=== PATIENT | female | born 1975 | race Caucasian/White ===

== ENCOUNTER → 2017-08-17 | Outpatient (REF) | payer OTHER ==
[2017-08-17 16:48] LABS: THYROID PEROXIDASE ANTIBODY < 28.0 U/ML (<60.0)
[2017-08-17 16:50] LABS: ALBUMIN 3.9 GM/DL (3.2-5.2); ALBUMIN/GLOBULIN RATIO 1.15 (1.00-1.93); ALKALINE PHOSPHATASE 58 U/L (45-117); ALT/SGPT 30 U/L (12-78); AST/SGOT 15 U/L (7-37); BILIRUBIN,DIRECT < 0.1 MG/DL (0.0-0.2); BILIRUBIN,TOTAL 0.2 MG/DL (0.2-1.0); FREE T3 2.5 PG/ML (2.2-4.0); FREE T4 0.96 NG/DL (0.76-1.46); RHEUMATOID FACTOR QUANT < 10.0 IU/ML (<15.0); THYROID STIMULATING HORMONE 0.956 uIU/ML (0.358-3.740); TOTAL PROTEIN 7.3 GM/DL (6.4-8.2)
[2017-08-17 17:14] LABS: ERYTHROCYTE SEDIMENTATION RATE 15 mm/hr (0-20)
[2017-08-23 00:10] LABS: ANTINUCLEAR ANTIBODIES DIRECT Negative (Negative); IGE RECEPTOR ABY 1 <2.2 (<10); THRYOGLOBULIN ANTIBODIES (ATA) < 1.0 IU/mL (0.0-0.9); THYROGLOBULIN QUANTITATIVE 5.4 ng/mL (1.5-38.5)
== END ==
LOC: M LABDRAW1 16:03
DX: L50.1 Idiopathic urticaria (principal)

== ENCOUNTER → 2018-05-26 | Outpatient (REF) | payer OTHER ==
[~2018-05-26] MED LIST: NORCOTAB PO; ZOFR4TAB16 PO
== END ==
LOC: M LAB REF 19:07
PROVIDERS: ATTEND Physician Assistant Medical
DX: M54.5 Low back pain (principal)

== ENCOUNTER 2018-05-30 18:12 | Emergency (ER) | payer OTHER ==
[~2018-05-30] VITALS: Ht 162.6 cm; Wt 95.5 kg
[2018-05-30] MEDS ORDERED: NORCO, ANEXSIA 5/325MG TABLET (HYDROcodone/ACETAMINOPHEN) PO ONE (19:00)
--- NOTE | 2018-05-30 20:02 | REP ---
CHEST, TWO VIEWS: COMPARISON: 11/28/2006 There is no acute infiltrate. The heart is normal in size. Mediastinal silhouette is unremarkable and unchanged. The visualized osseous structures are grossly intact. IMPRESSION: No acute pulmonary disease. Electronically Signed by Dieter Kerr MD 05/31/2018 02:12 P
[2018-05-30] MEDS ORDERED: NORCOTAB PO (20:59)
[2018-05-30] MEDS ORDERED: ZOFR4TAB16 PO (21:01)
--- NOTE | 2018-05-30 21:01 | REP ---
CT ABDOMEN AND PELVIS WITHOUT CONTRAST: CT abdomen and pelvis performed without oral or IV contrast. Sagittal and coronal reconstruction images are performed. The visualized lung bases demonstrate no infiltrate. The liver is grossly unremarkable. Patient has had a cholecystectomy previously. There is no biliary dilatation. The spleen, adrenals, pancreas and left kidney are unremarkable. Right kidney demonstrates a 2 mm calcification in the mid collecting system. No ureteral or bladder calculus is seen and there is no evidence of hydroureteronephrosis. There is no abdominal aortic aneurysm. There is no adenopathy. There is no free air or free fluid. There is no bowel wall thickening. There is no evidence of appendicitis. I see no pelvic mass. The urinary bladder is not optimally distended. IMPRESSION: There is a tiny 2 mm intrarenal calculus right kidney. No hydroureteronephrosis. Patient has had a prior cholecystectomy. No evidence of appendicitis. Electronically Signed by Dieter Kerr MD 05/31/2018 02:41 P
[2018-05-30 21:13] VITALS: BP 140/77
== END 2018-05-30 21:13 | disposition home or self-care (01) ==
LOC: M ED 18:12
DX: N83.209 Unspecified ovarian cyst, unspecified side (principal); N20.0 Calculus of kidney; Z88.2 Allergy status to sulfonamides; J30.2 Other seasonal allergic rhinitis

== ENCOUNTER → 2018-10-25 | Outpatient (CLI) | payer OTHER ==
[~2018-10-25] MED LIST changes: +HYDR-3715 PO; -NORCOTAB PO
--- NOTE | 2018-10-25 20:19 | REP ---
Diagnostic unilateral left breast mammography with CAD and 3-D tomography as well as focused left breast sonography: History: Pain and lump in the left axilla. Remote prior lipoma excision here. Comparison is made with multiple prior mammographic studies, the most recent of these is from October 25, 2018. More remote prior [facility] imaging mammography is reviewed as well. Mammographic findings: Magnified CC and true mediolateral views were obtained along with MLO views. A skin marker is affixed to the skin at the site of the symptoms and palpable abnormality. Mammographic views demonstrate a normal stable fat replaced lymph node adjacent to the skin marker and normal vascular structures. No mass is seen. Breast parenchyma is predominately fat replaced. No change mammographically from multiple prior mammograms. No microcalcification or worrisome skin change is seen. Sonographic findings: The left axilla is scanned. There is an 8 mm x 10 mm x 4 mm lymph node in the left axilla with hyperechoic fatty hilar architecture. There is also a somewhat larger lymph node measuring 2.6 x 1.2 x 2.7 cm. It also has a normal appearing echogenic fatty hilum and is felt to correspond with the larger node seen mammographically. No sonographically suspicious findings. Impression: BIRADS category II benign findings. Clinical follow-up is advised. BIRADS 2: BI-RADS/ACR category 2 mammogram. Benign Findings. This mammogram was interpreted with the aid of an FDA-approved computer-aided detection system. The patient states she had a clinical breast exam in October 2018. The patient letter being requested is m# [id number]. Electronically Signed by Abiodun Montilla MD 10/25/2018 09:18 P
== END ==
LOC: M RAD 13:36
PROVIDERS: ATTEND Surgery
DX: N63.32 Unspecified lump in axillary tail of the left breast (principal)

== ENCOUNTER → 2018-11-15 | Outpatient (REF) | payer OTHER | LOC: M LAB REF 19:35 | PROVIDERS: ATTEND Physician Assistant Medical | DX: J02.9 Acute pharyngitis, unspecified (principal) ==

== ENCOUNTER → 2020-07-18 | Outpatient (CLI) | payer OTHER ==
[~2020-07-18] MED LIST changes: +BIOT10009 PO; +VITAD400CA PO; +VITMTA PO
== END ==
LOC: M LABSMTC 10:18
PROVIDERS: ATTEND Anesthesiology
DX: Z01.812 Encounter for preprocedural laboratory examination (principal); Z11.52 Encounter for screening for COVID-19

== ENCOUNTER 2020-07-23 07:16 | Day surgery (SDC) | payer OTHER ==
[~2020-07-23] VITALS: Ht 162.6 cm; Wt 101.1 kg
[~2020-07-23 07:16] MED LIST changes: +LR 1,000 ML IV ONE
[2020-07-23 08:14] LABS: HEMATOCRIT 43.3 % (36.0-47.0); HEMOGLOBIN 14.7 g/dl (12.0-15.5); MEAN CORPUSCULAR HEMOGLOBIN 30.2 pg (27.0-33.0); MEAN CORPUSCULAR HGB CONC 33.9 g/dl (32.0-36.5); MEAN CORPUSCULAR VOLUME 89.1 fl (80.0-96.0); PLATELET COUNT, AUTOMATED 269 10^3/uL (150-450); RED BLOOD COUNT 4.86 10^6/uL (4.00-5.40); WHITE BLOOD COUNT 5.7 10^3/uL (4.0-10.0)
[2020-07-23] MEDS ORDERED: fentaNYL 250 MCG/5 ML INJECTION (J3010) As Ordered ONE (09:35)
[2020-07-23] MEDS ORDERED: MIDAZOLAM INJ 2MG/2ML VIAL (J2250 PER 1MG) As Ordered ONE (09:36)
[2020-07-23] MEDS ORDERED: propofoL 200 MG/20 ML VIAL As Ordered ONE (10:03)
[2020-07-23] MEDS ORDERED: dexameTHASONE 4 MG/ML 1ML VIAL (J1100 PER 1MG) As Ordered ONE (10:04)
[2020-07-23] MEDS ORDERED: LIDOCAINE 2% 100MG/5ML SDV (FOR ANES.) As Ordered ONE (10:06)
[2020-07-23] MEDS ORDERED: ONDANSETRON 4MG/2ML VIAL As Ordered ONE ×2 (10:28→11:25)
[2020-07-23] MEDS ORDERED: KETOROLAC 60MG 2ML VIAL As Ordered ONE (10:29)
[2020-07-23] MEDS ORDERED: LR 1,000 ML IV SCH ×2 (11:25→11:30)
[2020-07-23] MEDS ORDERED: ONDANSETRON 4MG/2ML VIAL IV PRN (11:25)
[2020-07-23] MEDS ORDERED: METOCLOPRAMIDE INJ 10MG/2ML VIAL (J2765 PER 1) IV PRN (11:25)
[2020-07-23] MEDS ORDERED: PERCOCET 5MG/325MG TAB PO PRN ×2 (11:25→11:30)
[2020-07-23] MEDS ORDERED: METOCLOPRAMIDE INJ 10MG/2ML VIAL (J2765 PER 1) As Ordered ONE (11:25)
[2020-07-23] MEDS ORDERED: fentaNYL 100 MCG/2 ML INJECTION (J3010) IV PRN (11:25)
--- NOTE | 2020-07-23 12:51 | RO ---
OPERATIVE NOTE DATE OF OPERATION: 07/23/2020 INDICATIONS: Luz Marina is a 45-year-old female with history of heavy menstrual cycles. After counseling the decision was made for D&C, hysteroscopy and NovaSure ablation. PREOPERATIVE DIAGNOSIS: Menorrhagia. POSTOPERATIVE DIAGNOSIS: Menorrhagia. PROCEDURES: 1. D&C. 2. Hysteroscopy. 3. NovaSure ablation. SURGEON: Gilson Junior DO MORNING BABYSITTER: ANESTHESIA: General. COMPLICATIONS: None. ESTIMATED BLOOD LOSS: Less than 20 mL. FINDINGS: Fluffy endometrium, cannot rule out endometrial hyperplasia. The endometrial ablation cycle lasted 1 minute 12 seconds. DESCRIPTION OF PROCEDURE: After obtaining informed consent, the patient was taken to the operating room where general anesthetic was found to be adequate. She was prepped and draped in usual sterile fashion in dorsal lithotomy position. At this point a straight catheterization of the bladder was performed of approximately 150 mL of clear urine. We then placed a weighted speculum in the posterior fornix of the vagina. Using Lujan retractor the anterior lip of the cervix was grasped with single tooth tenaculum. The uterus was sounded to approximately 10 cm giving total cavity length of 6.5. The cervix was then serially dilated. Hysteroscope was inserted. Fluffy endometrium was noted, no evidence of any polyp or fibroid. The hysteroscope was removed, sharp curettage of the endometrial lining was done and tissues sent to pathology for final diagnosis. The NovaSure endometrial ablation device was then inserted, cavity length 6.5, cavity width adjusted to 4.5. We then performed cavity test. After passing the cavity test the device was enabled and the endometrial ablation cycle was started. The cycle lasted 1 minute 12 seconds, good ablative process was noted. Good hemostasis was noted. All instruments were removed. The patient tolerated the procedure well and was then transferred to the recovery room in stable condition. cc: [facility]
[2020-07-23 13:28] VITALS: BP 131/81
[2020-07-23] MEDS ORDERED: IBUPROFEN 800 MG TAB PO SCH (18:00)
== END 2020-07-23 13:30 | disposition home or self-care (01) ==
LOC: M SDC 07:16
PROVIDERS: ATTEND Obstetrics & Gynecology
DX: N84.0 Polyp of corpus uteri (principal); Z88.2 Allergy status to sulfonamides
CPT/HCPCS: 36415; 58563; 81025; 85027; 86850; 86900; 86901; 88305; J1100; J1885; J2250; J2405; J2765; J3010

== ENCOUNTER → 2020-12-03 | Outpatient (REF) | payer OTHER ==
[~2020-12-03] MED LIST changes: -LR 1,000 ML IV ONE
[2020-12-03 15:02] LABS: ALBUMIN 3.6 GM/DL (3.2-5.2); ALT/SGPT 35 U/L (12-78); BILIRUBIN,TOTAL 0.8 MG/DL (0.2-1.0); BLOOD UREA NITROGEN 10 MG/DL (7-18); CALCIUM LEVEL 8.8 MG/DL (8.5-10.1); CARBON DIOXIDE LEVEL 29 MEQ/L (21-32); CHLORIDE LEVEL 104 MEQ/L (98-107); CHOLESTEROL LEVEL 158 MG/DL (<200); CHOLESTEROL RISK RATIO 4.647 (<5); CREATININE FOR GFR 0.61 MG/DL (0.55-1.30); GLOMERULAR FILTRATION RATE > 60.0 (>58); GLUCOSE, FASTING 116 MG/DL (70-100); HDL CHOLESTEROL 34 MG/DL (>40); LDL CHOLESTEROL 82 MG/DL (<100); NON-HDL-C 124 MG/DL; POTASSIUM SERUM 4.1 MEQ/L (3.5-5.1); SODIUM LEVEL 139 MEQ/L (136-145); TOTAL PROTEIN 6.8 GM/DL (6.4-8.2); TRIGLYCERIDES LEVEL 210 MG/DL (<150)
== END ==
LOC: M LABDRWAD 12:18
PROVIDERS: ATTEND Nurse Practitioner Family
DX: Z00.00 Encounter for general adult medical examination without abnormal findings (principal)

== ENCOUNTER → 2021-01-09 | Outpatient (CLI) | payer OTHER ==
--- NOTE | 2021-01-09 16:03 | REP ---
INDICATION: RT FLANK PAIN. COMPARISON: Multiple the latest 05/30/2018 also without contrast TECHNIQUE: Standard helical technique without intravenous or oral bowel preparatory contrast. Stone protocol utilized due right flank pain. FINDINGS: In the inferior most imaged portion of the right middle lobe there is a pleural based 5 mm size nodule. This area was not imaged on either of the prior to CT exams. The lung loyd are otherwise clear. There is a 2 mm size nonobstructing right nephrolith. This is unchanged from the prior exam of 05/30/2018. There are no left nephroliths. There are no ureteroliths. There is no hydronephrosis or hydroureter. Limited evaluation of the solid intra-abdominal organs show no significant changes from the prior exams. Limited evaluation of the pancreas and adrenal glands show no significant changes from the prior exams. There is no free fluid or free air. There is no mass or adenopathy. The bowel loops and the mesenteries are within normal limits. Round low-density structures are seen in each adnexal space likely dominant ovarian follicles Bone window technique throughout the examination shows the osseous structures to be stable and intact. IMPRESSION: 1. There is a small stable right nephrolith as described above. 2. There is no evidence of acute intra-abdominal or intrapelvic disease. Likely bilateral dominant ovarian follicles. If clinically relevant follow-up with pelvic ultrasound. 3. There is a small nodule in the right middle lobe as described above. Since are no priors for comparison, and according to the revised Fleischner society criteria, CT examination the chest is recommended. <Electronically signed by Kieran Castro > 01/09/21 [id number]
== END ==
LOC: M PLAIMG 13:27
PROVIDERS: ATTEND Nurse Practitioner Family
DX: R10.9 Unspecified abdominal pain (principal); R91.1 Solitary pulmonary nodule; N20.0 Calculus of kidney

== ENCOUNTER → 2021-01-21 | Outpatient (CLI) | payer OTHER ==
[~2021-01-21] MED LIST changes: +ISOVUE-370 76% 100ML VIAL ONE
--- NOTE | 2021-01-21 10:54 | REP ---
INDICATION: LUNG NODULE. COMPARISON: CXR 05/30/2018; lung windows from CT abdomen 01/09/2021, 05/30/2018. TECHNIQUE: Bolus 100 mL Isovue 370 scanning through the chest with coronal and sagittal reconstructions. FINDINGS: When the medial segment of the right middle lobe inferiorly and medially is compared to the prior lung windows from abdominal CT, epicardial fat pad is seen mildly prominent and with irregular margins to the long but no parenchymal lung mass is seen finding on previous CT appears to be stable pleural margin and not true lung nodule. Is also fairly prominent epicardial fat pad on the left the remainder of the right middle lobe, a both upper and lower lobes are without nodules, pleural thickening, calcified plaques, acute infiltrate or masses the heart is not enlarged and there is no pericardial thickening or effusion. The aorta is without aneurysm or dissection. The main, right and left pulmonary arteries in the mediastinum or without filling defects there is no hilar or mediastinal mass. No pathologic sized mediastinal adenopathy. No axillary or supraclavicular mass. Bone windows show discogenic sclerosis and disc space narrowing at the T11-12 and T12-L1. T6-7 level also shows endplate sclerosis anteriorly. No compression fractures or destructive lesions. Sternum, manubrium, medial clavicles, scapulae, humeral heads and ribs are were all intact. There is a simple cyst near the dome of the right lobe of the liver without focal hepatic solid mass or biliary dilatation no adjacent ascites. Prior cholecystectomy. Spleen unremarkable. Upper poles kidneys, adrenal glands, pancreas are unremarkable. IMPRESSION: 1. Nodular like density on the previous abdominal CT lung window at the base of the right lung anteriorly represents pleural reflection from epicardial fat pad and is stable without a new or acute finding in the chest. No parenchymal nodules, calcified pleural plaques, mediastinal or hilar adenopathy nor other acute finding. 2. Simple cyst the near the dome of the liver on the right hepatic lobe. 3. Upper poles kidneys, adrenal glands, pancreas and spleen unremarkable. Gallbladder surgically absent. 4. Discogenic endplate sclerosis T11-12 and T12-L1. <Electronically signed by Ephraim Sanderson > 01/21/21 [id number]
== END ==
LOC: M PLAIMG 09:23
PROVIDERS: ATTEND Nurse Practitioner Family
DX: R91.8 Other nonspecific abnormal finding of lung field (principal); K76.89 Other specified diseases of liver; Z90.49 Acquired absence of other specified parts of digestive tract
CPT/HCPCS: 71260; Q9967

== ENCOUNTER → 2021-02-19 | Outpatient (REF) ==
[~2021-02-19] MED LIST changes: -ISOVUE-370 76% 100ML VIAL ONE
== END ==
LOC: M LABSMTC 09:33
PROVIDERS: ATTEND Pediatrics
DX: Z20.822 Contact with and (suspected) exposure to COVID-19 (principal)

== ENCOUNTER 2021-02-20 00:16 | Emergency (ER) | payer OTHER ==
[~2021-02-20] VITALS: Ht 162.6 cm; Wt 99.1 kg
[2021-02-20 09:57] LABS: BASO % 0.3 % (0.0-1.0); EOS # 0.2 10^3/uL (0.0-0.5); EOS % 2.4 % (0.0-3.0); HEMATOCRIT 40.9 % (36.0-47.0); HEMOGLOBIN 14.2 g/dl (12.0-15.5); LYMPH # 1.3 10^3/uL (1.5-5.0); LYMPH % 17.8 % (24.0-44.0); MEAN CORPUSCULAR HEMOGLOBIN 30.7 pg (27.0-33.0); MEAN CORPUSCULAR HGB CONC 34.7 g/dl (32.0-36.5); MEAN CORPUSCULAR VOLUME 88.5 fl (80.0-96.0); MONO # 0.8 10^3/uL (0.0-0.8); MONO % 10.8 % (2.0-8.0); NEUTROPHILS # 5.1 10^3/uL (1.5-8.5); NEUTROPHILS % 68.3 % (36.0-66.0); PLATELET COUNT, AUTOMATED 205 10^3/uL (150-450); RED BLOOD COUNT 4.62 10^6/uL (4.00-5.40); WHITE BLOOD COUNT 7.4 10^3/uL (4.0-10.0)
[2021-02-20 10:44] LABS: BLOOD UREA NITROGEN 11 MG/DL (7-18); CARBON DIOXIDE LEVEL 28 MEQ/L (21-32); CHLORIDE LEVEL 107 MEQ/L (98-107); CREATININE FOR GFR 0.66 MG/DL (0.55-1.30); FREE T4 0.95 NG/DL (0.76-1.46); GLOMERULAR FILTRATION RATE > 60.0 (>58); GLUCOSE, FASTING 103 MG/DL (70-100); SODIUM LEVEL 140 MEQ/L (136-145)
[2021-02-20] MEDS ORDERED: NS 1,000 ML IV ONE (12:05)
[2021-02-20] MEDS ORDERED: ISOVUE-370 76% 100ML VIAL As Ordered ONE (12:08)
[2021-02-20 13:31] LABS: HCG, SERUM QUALITATIVE NEGATIVE (NEGATIVE)
[2021-02-20] MEDS ORDERED: BAMLANIVIMAB 700 MG, ETESEVIMAB 1,400 MG in NS 250 ML IV ONE (13:45)
[2021-02-20] MEDS ORDERED: ALBUTEROL SULFATE 2.5 MG/0.5 ML INH NEB SOLN INH PRN (13:45)
[2021-02-20] MEDS ORDERED: methylPREDNISolone 125MG 2ML VIAL IV PRN (13:45)
[2021-02-20] MEDS ORDERED: ALBUTEROL 90 MCG/ACT 8GM HFA INHALER INH PRN (13:45)
[2021-02-20] MEDS ORDERED: diphenhydrAMINE 50MG/ML VIAL (J1200) IV PRN (13:45)
[2021-02-20] MEDS ORDERED: EPINEPHrine INJ 1 MG/ML 1ML AMP IM PRN (13:45)
[2021-02-20] MEDS ORDERED: ACETAMINOPHEN TAB 650MG DOSE (2X325MG) PO PRN (13:45)
[2021-02-20] MEDS ORDERED: NS 1,000 ML IV SCH (13:45)
[2021-02-20 14:00] VITALS: BP 142/78
== END 2021-02-20 14:21 | disposition home or self-care (01) ==
LOC: M ED 00:16
DX: U07.1 COVID-19 (principal); R51.9 Headache, unspecified; R00.0 Tachycardia, unspecified; E66.9 Obesity, unspecified; R53.1 Weakness; R05.9 Cough, unspecified; Z79.899 Other long term (current) drug therapy; J30.2 Other seasonal allergic rhinitis; Z88.2 Allergy status to sulfonamides
CPT/HCPCS: 71275; 80048; 84439; 84443; 84484; 84703; 85025; 93005; 96360; 96361; 99284; Q9967

== ENCOUNTER 2021-02-20 13:48 | Outpatient (CLI) | payer OTHER ==
[2021-02-20] MEDS ORDERED: diphenhydrAMINE 50MG/ML VIAL (J1200) IV PRN (13:55)
[2021-02-20] MEDS ORDERED: EPINEPHrine INJ 1 MG/ML 1ML AMP IM PRN (13:55)
[2021-02-20] MEDS ORDERED: BAMLANIVIMAB 700 MG, ETESEVIMAB 1,400 MG in NS 250 ML IV ONE (13:55)
[2021-02-20] MEDS ORDERED: ALBUTEROL SULFATE 2.5 MG/0.5 ML INH NEB SOLN INH PRN (13:55)
[2021-02-20] MEDS ORDERED: ALBUTEROL 90 MCG/ACT 8GM HFA INHALER INH PRN (13:55)
[2021-02-20] MEDS ORDERED: NS 1,000 ML IV SCH (13:55)
[2021-02-20] MEDS ORDERED: ACETAMINOPHEN TAB 650MG DOSE (2X325MG) PO PRN (13:55)
[2021-02-20] MEDS ORDERED: methylPREDNISolone 125MG 2ML VIAL IV PRN (13:55)
[2021-02-20] MEDS ORDERED: CASIRIVIMAB/IMDEVIMAB 1,200 MG in NS 250 ML IV ONE (15:30)
[2021-02-20 16:45] VITALS: BP 139/72
[2021-02-20 17:15] VITALS: BP 142/71
[2021-02-20 17:45] VITALS: BP 135/72
[2021-02-20 18:45] VITALS: BP 133/72
== END 2021-02-20 18:45 | disposition home or self-care (01) ==
LOC: M OPCLI4 13:48
PROVIDERS: ATTEND Internal Medicine
DX: U07.1 COVID-19 (principal); Z88.2 Allergy status to sulfonamides

== ENCOUNTER → 2022-04-02 | Outpatient (CLI) | payer OTHER ==
[2022-04-02 14:56] LABS: BASO % 0.7 % (0.0-1.0); EOS # 0.2 10^3/uL (0.0-0.5); EOS % 3.7 % (0.0-3.0); HEMATOCRIT 45.3 % (36.0-47.0); HEMOGLOBIN 14.9 g/dl (12.0-15.5); LYMPH # 1.9 10^3/uL (1.5-5.0); LYMPH % 31.9 % (24.0-44.0); MEAN CORPUSCULAR HEMOGLOBIN 29.8 pg (27.0-33.0); MEAN CORPUSCULAR HGB CONC 32.9 g/dl (32.0-36.5); MEAN CORPUSCULAR VOLUME 90.6 fl (80.0-96.0); MONO # 0.5 10^3/uL (0.0-0.8); NEUTROPHILS # 3.2 10^3/uL (1.5-8.5); NEUTROPHILS % 54.4 % (36.0-66.0); PLATELET COUNT, AUTOMATED 332 10^3/uL (150-450); WHITE BLOOD COUNT 5.9 10^3/uL (4.0-10.0)
[2022-04-02 15:22] LABS: ALBUMIN 3.9 G/DL (3.2-5.2); ALKALINE PHOSPHATASE 53 U/L (46-116); ALT/SGPT 28 U/L (7.0-40); AST/SGOT 23 U/L (<34); BILIRUBIN,TOTAL 0.5 MG/DL (0.3-1.2); BLOOD UREA NITROGEN 10 MG/DL (9-23); CALCIUM LEVEL 9.2 MG/DL (8.5-10.1); CARBON DIOXIDE LEVEL 27 MMOL/L (20-31); CHLORIDE LEVEL 104 MMOL/L (98-107); CREATININE FOR GFR 0.62 MG/DL (0.55-1.30); GLOMERULAR FILTRATION RATE > 60.0 (>58); GLUCOSE, FASTING 91 MG/DL (60-100); IRON (FE) 107 UG/DL (50-170); PERCENT SATURATION 29.1 % (13.2-45.0); SODIUM LEVEL 139 MMOL/L (136-145); TOTAL IRON BINDING CAPACITY 368 UG/DL (250-425); TOTAL PROTEIN 6.8 G/DL (5.7-8.2)
[2022-04-02 15:23] LABS: FERRITIN 24.6 NG/ML (7.3-270.7); THYROID STIMULATING HORMONE 1.631 uIU/ML (0.55-4.78)
[2022-04-02 15:24] LABS: FREE T4 1.01 NG/DL (0.89-1.76)
== END ==
LOC: M LABDRWAD 10:53
PROVIDERS: ATTEND Nurse Practitioner Family
DX: R68.89 Other general symptoms and signs (principal)

== ENCOUNTER → 2022-10-07 | Outpatient (REF) | LOC: M EMP 15:04 | PROVIDERS: ATTEND Family Medicine | DX: Z20.822 Contact with and (suspected) exposure to COVID-19 (principal) ==

== ENCOUNTER → 2023-12-05 | Outpatient (CLI) | payer BC, OTHER ==
[2023-12-05 11:22] LABS: BASO % 0.6 % (0.0-1.0); EOS # 0.2 10^3/uL (0.0-0.5); EOS % 2.9 % (0.0-3.0); HEMATOCRIT 44.1 % (36.0-47.0); HEMOGLOBIN 14.7 g/dl (12.0-15.5); LYMPH % 28.7 % (24.0-44.0); MEAN CORPUSCULAR HEMOGLOBIN 30.1 pg (27.0-33.0); MEAN CORPUSCULAR HGB CONC 33.3 g/dl (32.0-36.5); MEAN CORPUSCULAR VOLUME 90.2 fl (80.0-96.0); MONO # 0.6 10^3/uL (0.0-0.8); MONO % 8.1 % (2.0-8.0); NEUTROPHILS % 59.3 % (36.0-66.0); PLATELET COUNT, AUTOMATED 312 10^3/uL (150-450); RED BLOOD COUNT 4.89 10^6/uL (4.00-5.40); WHITE BLOOD COUNT 6.8 10^3/uL (4.0-10.0)
[2023-12-05 11:30] LABS: HEMOGLOBIN A1c 5.3 % (4.0-6.0)
[2023-12-05 11:50] LABS: FREE T4 1.02 NG/DL (0.89-1.76)
[2023-12-05 11:51] LABS: THYROID STIMULATING HORMONE 2.239 uIU/ML (0.55-4.78)
[2023-12-05 11:52] LABS: TOTAL 25(OH) VITAMIN D 53.2 NG/ML (20.0-100.0)
[2023-12-05 11:54] LABS: ALBUMIN 3.7 G/DL (3.2-5.2); ALKALINE PHOSPHATASE 52 U/L (46-116); ALT/SGPT 35 U/L (7.0-40); AST/SGOT 21 U/L (<34); BILIRUBIN,TOTAL 0.4 MG/DL (0.3-1.2); BLOOD UREA NITROGEN 13 MG/DL (9-23); CALCIUM LEVEL 8.9 MG/DL (8.5-10.1); CARBON DIOXIDE LEVEL 28 MMOL/L (20-31); CHLORIDE LEVEL 108 MMOL/L (98-107); CHOLESTEROL LEVEL 224 MG/DL (<200); FOLATE 12.6 NG/ML (>5.4); GLOMERULAR FILTRATION RATE > 60.0 (>58); GLUCOSE, FASTING 111 MG/DL (60-100); HDL CHOLESTEROL 40.7 MG/DL (>40); LDL CHOLESTEROL 146.5 MG/DL (<100); NON-HDL-C 183.3 MG/DL; POTASSIUM SERUM 4.3 MMOL/L (3.5-5.1); SODIUM LEVEL 139 MMOL/L (136-145); TOTAL PROTEIN 6.9 G/DL (5.7-8.2); TRIGLYCERIDES LEVEL 184 MG/DL (<150); VITAMIN B12 LEVEL 419 PG/ML (211-911)
== END ==
LOC: M PLALAB 07:23
PROVIDERS: ATTEND Nurse Practitioner Family
DX: Z00.00 Encounter for general adult medical examination without abnormal findings (principal); E66.9 Obesity, unspecified

== ENCOUNTER → 2024-04-16 | Outpatient (REF) | LOC: M EMP 07:29 | PROVIDERS: ATTEND Family Medicine | DX: Z11.52 Encounter for screening for COVID-19 (principal) ==

== ENCOUNTER → 2024-10-23 | Outpatient (REF) | payer BC, OTHER ==
[2024-10-23 18:47] LABS: BASO # 0.0 10^3/uL (0.0-0.2); BASO % 0.5 % (0.0-1.0); EOS # 0.1 10^3/uL (0.0-0.5); EOS % 2.2 % (0.0-3.0); LYMPH # 1.7 10^3/uL (1.5-5.0); LYMPH % 26.0 % (24.0-44.0); MONO # 0.5 10^3/uL (0.0-0.8); MONO % 7.5 % (2.0-8.0); NEUTROPHILS # 4.1 10^3/uL (1.5-8.5); NEUTROPHILS % 63.3 % (36.0-66.0); PLATELET COUNT, AUTOMATED 312 10^3/uL (150-450)
[2024-10-23 19:15] LABS: ALT/SGPT 31 U/L (7.0-40); AST/SGOT 33 U/L (<34); CALCIUM LEVEL 8.6 MG/DL (8.5-10.1); CARBON DIOXIDE LEVEL 25 MMOL/L (20-31); CHLORIDE LEVEL 104 MMOL/L (98-107); CREATININE FOR GFR 0.55 MG/DL (0.55-1.30); GLOMERULAR FILTRATION RATE > 90.0 (>58); POTASSIUM SERUM 4.3 MMOL/L (3.5-5.1); SODIUM LEVEL 142 MMOL/L (136-145)
== END ==
LOC: M LAB REF 18:09
PROVIDERS: ATTEND Registered Nurse
DX: R22.9 Localized swelling, mass and lump, unspecified (principal)

== ENCOUNTER → 2024-11-05 | Outpatient (REF) | payer OTHER ==
[2024-11-05 19:14] LABS: BASO # 0.0 10^3/uL (0.0-0.2); BASO % 0.6 % (0.0-1.0); EOS # 0.1 10^3/uL (0.0-0.5); EOS % 2.3 % (0.0-3.0); LYMPH # 1.7 10^3/uL (1.5-5.0); LYMPH % 26.9 % (24.0-44.0); MONO # 0.5 10^3/uL (0.0-0.8); MONO % 7.4 % (2.0-8.0); NEUTROPHILS # 3.9 10^3/uL (1.5-8.5); NEUTROPHILS % 62.5 % (36.0-66.0); PLATELET COUNT, AUTOMATED 334 10^3/uL (150-450)
[2024-11-05 19:36] LABS: ALT/SGPT 26 U/L (7.0-40); AST/SGOT 29 U/L (<34); CALCIUM LEVEL 9.1 MG/DL (8.5-10.1); CARBON DIOXIDE LEVEL 27 MMOL/L (20-31); CHLORIDE LEVEL 103 MMOL/L (98-107); CREATININE FOR GFR 0.65 MG/DL (0.55-1.30); GLOMERULAR FILTRATION RATE > 90.0 (>58); POTASSIUM SERUM 4.5 MMOL/L (3.5-5.1); SODIUM LEVEL 143 MMOL/L (136-145)
[2024-11-05 19:37] LABS: FREE T4 1.04 NG/DL (0.89-1.76)
[2024-11-05 19:42] LABS: RHEUMATOID FACTOR QUANT < 3.5 IU/ML (<14)
[2024-11-10 17:38] LABS: LYME TOTAL ANTIBODY CIA <= 0.90 Index (<=0.90)
[2024-11-10 19:41] LABS: RUBELLA ANTIBODY IGM < 20.00 AU/mL (<20.00)
== END ==
LOC: M LABDRWAD 16:59
PROVIDERS: ATTEND Registered Nurse
DX: R22.9 Localized swelling, mass and lump, unspecified (principal); M25.50 Pain in unspecified joint

== ENCOUNTER → 2024-12-21 | Outpatient (REF) | payer OTHER ==
[2024-12-24 13:31] LABS: EBV AB TO NUCLEAR ANTIGEN 360.00 U/mL (<18.00); EBV VIRAL CAPSID AG IGG 694.00 U/mL (<18.00); EBV VIRAL CAPSID AG IGM < 36.00 U/mL (<36.00)
== END ==
LOC: M LAB REF 17:00
PROVIDERS: ATTEND Nurse Practitioner Family
DX: R22.9 Localized swelling, mass and lump, unspecified (principal)

== ENCOUNTER → 2025-02-27 | Outpatient (CLI) | payer OTHER ==
[~2025-02-27] MED LIST changes: +PROHANCE 279.3MG/ML 15ML VIAL As Ordered ONE; +PROHANCE 279.3MG/ML 5ML VIAL As Ordered ONE
== END ==
LOC: M RAD 14:40
PROVIDERS: ATTEND Nurse Practitioner Family
DX: R22.9 Localized swelling, mass and lump, unspecified (principal)